=== PATIENT | female | born 1980 | race Two or more races ===

== ENCOUNTER 2025-07-06 19:32 | Emergency (ER) | payer MEDICAID ==
[~2025-07-06] VITALS: Ht 165.1 cm; Wt 56.7 kg
[2025-07-06 20:50] VITALS: TEMP 98.6
[2025-07-06 21:18] LABS: APPEARANCE,URINE CLEAR (CLEAR); BLOOD, URINE NEGATIVE Ery/uL (NEGATIVE); LEUKOCYTE ESTERASE ,URINE NEGATIVE (NEGATIVE); NITRITE, URINE NEGATIVE (NEGATIVE); PREGNANCY TEST URINE QUAL NEGATIVE (NEGATIVE); UGLUCOSE NEGATIVE (NEGATIVE)
[2025-07-06 21:37] LABS: PLATELET COUNT (AUTO) 185 K/uL (150-450); RED BLOOD CELL COUNT(AUTO) 3.30 MIL/uL (4.0-5.2); RED CELL DISTRIBUTION WIDTH 13.6 % (11.5-15.0); WHITE BLOOD COUNT (AUTO) 3.6 K/uL (4.3-11.0)
[2025-07-06 21:45] LABS: CALCIUM, SERUM 8.6 mg/dL (8.5-10.1); CREATININE 0.9 mg/dL (0.6-1.3); SODIUM SERUM 140.0 mmol/L (136-145); UREA NITROGEN, BLOOD 8.0 mg/dL (7-18)
[2025-07-06 21:50] LABS: ASPARTATE AMINOTRANSFERASE 11.0 U/L (15-37); TOTAL PROTEIN, SERUM 6.3 g/dL (6.4-8.2)
[2025-07-06] MEDS ORDERED: DICY10CA37 PO (22:15)
[2025-07-06] MEDS ORDERED: ONDA4TAB11 PO (22:15)
[2025-07-06] MEDS ORDERED: POLY119P PO (23:09)
[2025-07-06 23:37] VITALS: BP 110/62; O2SAT 97
== END 2025-07-06 23:36 | disposition home or self-care (01) ==
LOC: ER 19:34
DX: R10.13 Epigastric pain (principal); Z87.442 Personal history of urinary calculi
CPT/HCPCS: 36415; 80048-TC; 80076-TC; 83690-TC; 84703-TC; 85025-TC